=== PATIENT | female | born 1980 | race Caucasian/White ===

== ENCOUNTER → 2016-08-29 | Outpatient (CLI) | payer OTHER | END | disposition home or self-care (01) | LOC: LABWHC1 10:00 | PROVIDERS: ATTEND Internal Medicine Endocrinology, Diabetes & Metabolism | DX: E03.8 Other specified hypothyroidism (principal) | CPT/HCPCS: 36415; 84443 ==

== ENCOUNTER → 2017-02-23 | Outpatient (CLI) | payer OTHER | END | disposition home or self-care (01) | LOC: LABWHC1 09:48 | PROVIDERS: ATTEND Internal Medicine Endocrinology, Diabetes & Metabolism | DX: E03.8 Other specified hypothyroidism (principal) | CPT/HCPCS: 36415; 84443 ==

== ENCOUNTER → 2017-10-19 | Outpatient (CLI) | payer OTHER | END | disposition home or self-care (01) | LOC: LABWHC1 10:55 | PROVIDERS: ATTEND Internal Medicine Endocrinology, Diabetes & Metabolism | DX: E03.8 Other specified hypothyroidism (principal) | CPT/HCPCS: 36415; 84443 ==

== ENCOUNTER → 2018-10-19 | Outpatient (CLI) | payer OTHER ==
[2018-10-19 17:27] LABS: T4, Free (Free Thyroxine) 1.4 ng/dL (0.80-1.80)
== END ==
LOC: LABWHC1 10:17
PROVIDERS: ATTEND Internal Medicine Endocrinology, Diabetes & Metabolism
DX: E04.1 Nontoxic single thyroid nodule (principal)
CPT/HCPCS: 36415; 84439; 84443

== ENCOUNTER → 2018-10-25 | Outpatient (CLI) | payer OTHER ==
--- NOTE | 2018-10-25 13:36 | US ---
EXAMINATION TYPE: US thyroid st tissue head/neck DATE OF EXAM: 10/25/2018 COMPARISON: NONE CLINICAL HISTORY: E04.1 Nontoxic single thyroid nodule. Patient states she has had a thyroid biopsy i n the past GLAND SIZE: Right Lobe: 4.8 x 1.4 x 1.6 cm Overall Parenchyma: homogenous Left Lobe: 4.4 x 0.9 x 1.5 cm Overall Parenchyma: homogeneous Isthmus Thickness: 0.2 cm NODULES RIGHT: # of nodules measured on right: 1 1. 1.1 X 0.7 x 0.7 cm hypoechoic solid nodule at the lower pole with well-defined margins. This no dule is wider than tall and shows intranodular vascularity. Prior size: No previous LEFT: # of nodules measured on left: 0 ISTHMUS: # of nodules measured in the isthmus: 0 Bilateral neck scanned, no evidence of lymphadenopathy. IMPRESSION: Solitary right thyroid nodule meeting criteria for a TI-RADS 4-Moderately Suspicious: FNA if ? 1.5 cm ; Follow if ? 1 cm. Therefore continued follow-up is recommended at this time.
== END | disposition home or self-care (01) ==
LOC: RADUSWWP 09:30
PROVIDERS: ATTEND Internal Medicine Endocrinology, Diabetes & Metabolism
DX: E04.1 Nontoxic single thyroid nodule (principal)
CPT/HCPCS: 76536

== ENCOUNTER → 2018-10-25 | Outpatient (CLI) | payer OTHER ==
--- NOTE | 2018-10-25 11:21 | MM ---
Reason for exam: clinical finding. Baseline mammogram. Indicated problem(s): lump or thickening in the right breast. Physical Findings: Nurse did not find any significant physical abnormalities on exam. MG 3D Diag Mammo W/Cad ESTHER Bilateral CC and MLO view(s) were taken. XCCL view(s) were taken of the right breast. The breast tissue is heterogeneously dense. This may lower the sensitivity of mammography. Finding: There is a typically benign equal density (isodense), circumscribed oval mass in the upper outer quadrant, posterior position of the right breast consistent with probable lymph node. There is no discrete abnormality. These results were verbally communicated with the patient and result sheet given to the patient on 10/25/18. ASSESSMENT: Benign, BI-RAD 2 RECOMMENDATION: Routine screening mammogram of both breasts at age 42. Manage patient on a clinical basis.
--- NOTE | 2018-10-25 11:22 | USB ---
Reason for exam: clinical finding. US Breast Limited RT Right limited breast ultrasound including focal area of concern, retroareolar and axilla demonstrates no cystic or solid lesion seen. BB (palpable abnormality) corresponds to a focal area of dense tissue. No suspicious finding. These results were verbally communicated with the patient and result sheet given to the patient on 10/25/18. ASSESSMENT: Negative, BI-RAD 1 RECOMMENDATION: Routine screening mammogram of both breasts at age 42. (or sooner if clinically indicated)
== END | disposition home or self-care (01) ==
LOC: RADMAMWWP 09:26
PROVIDERS: ATTEND Obstetrics & Gynecology
DX: N63.12 Unspecified lump in the right breast, upper inner quadrant (principal)
CPT/HCPCS: 77062; 77066

== ENCOUNTER → 2019-05-27 | Outpatient (CLI) | payer OTHER | END | disposition home or self-care (01) | LOC: LABWHC1 10:12 | PROVIDERS: ATTEND Internal Medicine Endocrinology, Diabetes & Metabolism | DX: E03.8 Other specified hypothyroidism (principal) | CPT/HCPCS: 36415; 84443 ==

== ENCOUNTER → 2020-08-26 | Outpatient (CLI) | payer OTHER | END | disposition home or self-care (01) | LOC: LABWHC1 11:42 | PROVIDERS: ATTEND Internal Medicine Endocrinology, Diabetes & Metabolism | DX: E03.8 Other specified hypothyroidism (principal) | CPT/HCPCS: 36415; 84443 ==

== ENCOUNTER → 2021-04-22 | Outpatient (CLI) | payer OTHER ==
[2021-04-22 15:12] LABS: Basophils # (A) 0.02 X 10*3/uL (0.00-0.10); Basophils % (A) 0.3 %; Eosinophils # (A) 0.02 X 10*3/uL (0.04-0.35); Eosinophils % (A) 0.3 %; HGB 13.7 g/dL (12.0-15.0); Lymphocytes # (A) 1.74 X 10*3/uL (0.90-5.00); Lymphocytes % (A) 25.8 %; MCH 30.2 pg (27.0-32.0); MCHC 33.4 g/dL (32.0-37.0); MCV 90.3 fL (80.0-97.0); Mean Platelet Volume 10.7 fL (9.5-12.2); Monocytes % (A) 10.4 %; Neutrophils # (A) 4.24 X 10*3/uL (1.80-7.70); Neutrophils % (A) 62.9 %; Platelet Count 333 X 10*3/uL (140-440); RBC 4.54 X 10*6/uL (4.10-5.20); RDW 12.7 % (11.5-14.5); WBC 6.74 X 10*3/uL (4.50-10.00)
[2021-04-22 16:07] LABS: African American GFR (CKD) 129.2 (60.0-200.0); Albumin 4.7 g/dL (3.8-4.9); Albumin/Globulin Ratio 1.75 (1.60-3.17); BUN/Creat Ratio 16.1 Ratio (12.00-20.00); Blood Urea Nitrogen 10.8 mg/dL (9.0-27.0); Calcium 9.5 mg/dL (8.7-10.3); Carbon Dioxide 22.9 mmol/L (20.0-27.5); Globulin 2.7 g/dL (1.6-3.3); Non-African American GFR(CKD) 111.5 (60.0-200.0); T4, Free (Free Thyroxine) 1.56 ng/dL (0.800-1.800); Total Bilirubin 1.3 mg/dL (0.30-1.20); Total Protein 7.5 g/dL (6.2-8.2)
[2021-04-22 16:08] LABS: HDL Cholesterol 60.1 mg/dL (40.00-60.00)
[2021-04-22 16:34] LABS: Chol/HDL Ratio 2.86 Ratio; LDL Cholesterol,Direct Reflex 98.2 mg/dL (0.00-129.00)
[2021-04-22 21:36] LABS: HIV 2 AB Non-Reactive (Non-Reactive); HIV AB P24 Non-Reactive (Non-Reactive); HIV P24 AG Non-Reactive (Non-Reactive)
== END | disposition home or self-care (01) ==
LOC: LABWHC1 09:22
PROVIDERS: ATTEND Internal Medicine Endocrinology, Diabetes & Metabolism
DX: Z11.3 Encounter for screening for infections with a predominantly sexual mode of transmission (principal); Z13.0 Encounter for screening for diseases of the blood and blood-forming organs and certain disorders involving the immune mechanism; Z13.228 Encounter for screening for other metabolic disorders; Z13.220 Encounter for screening for lipoid disorders; E03.9 Hypothyroidism, unspecified; E04.1 Nontoxic single thyroid nodule
CPT/HCPCS: 36415; 80053; 80061; 83721; 84439; 84443; 85025; 86803; 87390

== ENCOUNTER → 2021-04-27 | Outpatient (CLI) | payer OTHER ==
--- NOTE | 2021-04-27 13:09 | US ---
EXAMINATION TYPE: US thyroid st tissue head/neck DATE OF EXAM: 04/27/2021 COMPARISON: 10/25/2018 CLINICAL HISTORY: E03.9 Other specified hypothyroidism. Pervious FNA per patient GLAND SIZE: Right Lobe: 5.3x1.7x1.6 cm Overall Parenchyma: homogenous Left Lobe: 4.6x1.5x1.4 cm Overall Parenchyma: homogeneous Isthmus Thickness: 0.2 cm NODULES RIGHT: # of nodules measured on right: 1 1. 1.3 X 0.8 x 0.7 cm, lower mid, solid or almost completely solid, hypoechoic nodule, which is wid er than tall, with smooth margins, with macrocalcifications. Prior size: 1.1 x 0.7 x 0.7 cm LEFT: # of nodules measured on left: 0 ISTHMUS: # of nodules measured in the isthmus: 0 Bilateral neck scanned, no evidence of lymphadenopathy. Homogeneous normal-sized thyroid with stable in size lower pole 1.3 cm solid nodule accounting for te chnical differences, macrocalcifications are present on current study. IMPRESSION: As above. Follow if ultrasound at 1, 2, 3, and 5 y is advised. 2017 ACR TI-RADS LEVEL: TR-RADS 4 - Moderately Suspicious: Follow if > 1 cm, FNA if > 1.5 cm *Highest TI-RADS level nodule reported
== END | disposition home or self-care (01) ==
LOC: RADUSWWP 12:17
PROVIDERS: ATTEND Internal Medicine Endocrinology, Diabetes & Metabolism
DX: E04.1 Nontoxic single thyroid nodule (principal)
CPT/HCPCS: 76536

== ENCOUNTER → 2022-02-04 | Outpatient (CLI) | payer OTHER ==
[2022-02-04 16:24] LABS: T4, Free (Free Thyroxine) 1.45 ng/dL (0.800-1.800)
== END | disposition home or self-care (01) ==
LOC: LABWHC1 09:17
PROVIDERS: ATTEND Internal Medicine Endocrinology, Diabetes & Metabolism
DX: E04.1 Nontoxic single thyroid nodule (principal)
CPT/HCPCS: 36415; 84439; 84443

== ENCOUNTER → 2022-06-06 | Outpatient (CLI) | payer BC ==
--- NOTE | 2022-06-06 12:58 | US ---
EXAMINATION TYPE: US thyroid st tissue head/neck DATE OF EXAM: 06/06/2022 COMPARISON: Thyroid ultrasound 04/27/2021, 10/25/2018. CLINICAL HISTORY: E03.8 OTHER SPECIFIED HYPOTHYROIDISM. Hypothyroidism GLAND SIZE: Right Lobe: 5.1 x 1.2 x 1.5 cm Overall Parenchyma: homogenous Left Lobe: 5.5 x 1.4 x 1.4 cm Overall Parenchyma: homogeneous Isthmus Thickness: .2 cm NODULES RIGHT: # of nodules measured on right: 1 1. 1.2 X .7 x .8 cm, lower , solid or almost completely solid, hypoechoic nodule, which is wider th an tall, with smooth margins, with echogenic foci. TR-4. Prior size: 1.3 x .7 x .8 cm LEFT: # of nodules measured on left: 0 ISTHMUS: # of nodules measured in the isthmus: 0 Bilateral neck scanned, no evidence of lymphadenopathy. IMPRESSION: Stable TR 4 right thyroid lobe 1.2 cm nodule. No new or enlarging thyroid nodules. Follow-up ultrasou nd in one year is recommended. 2017 ACR TI-RADS LEVEL: TR-RADS 4 - Moderately Suspicious: Follow if > 1 cm, FNA if > 1.5 cm *Highest TI-RADS level nodule reported
== END | disposition home or self-care (01) ==
LOC: RADUSWWP 11:15
PROVIDERS: ATTEND Internal Medicine Endocrinology, Diabetes & Metabolism
DX: E04.1 Nontoxic single thyroid nodule (principal); E03.8 Other specified hypothyroidism
CPT/HCPCS: 76536; 84443

== ENCOUNTER → 2024-06-07 | Outpatient (CLI) | payer BC ==
--- NOTE | 2024-06-07 10:25 | MM ---
Reason for Exam: Screening (asymptomatic). Last mammogram was performed 5 year(s) and 7 month(s) ago. Patient History: Menarche at age 15. First Full-Term at age 28. Patient has history of breast feeding. Last menstrual period: 05/24/2024 Risk Values: Melvi 5 year model risk: 0.7%. NCI Lifetime model risk: 11.0%. Prior Study Comparison: 10/25/2018 Bilateral Diagnostic Mammogram, [facility]. Tissue Density: The breasts are extremely dense, which lowers the sensitivity of mammography. Findings: Analyzed By CAD. There is a 11 mm Focal asymmetry outer aspect middle depth right breast cc view not clearly seen on MLO view . Follow-up advised. Benign-appearing bilateral axillary lymph nodes are seen. Overall Assessment: Incomplete: need additional imaging evaluation, BI-RAD 0 Management: Diagnostic Mammogram of the right breast. Diagnostic Breast Ultrasound of the right breast. Advise diagnostic mammogram and targeted ultrasound outer upper right breast due to background dense tissue. Patient should continue monthly self-breast exams. A clinical breast exam by your physician is recommended on an annual basis. This exam should not preclude additional follow-up of suspicious palpable abnormalities. Note on Melvi scores and lifetime risk: 1. A Melvi score greater than 3% is considered moderate risk. If this is the case, consider specialist referral to assess eligibility for a risk reducing agent. 2. If overall lifetime risk for the development of breast cancer is 20% or higher, the patient may qualify for future screening with alternating mammogram and breast MRI. [facility], , 06/07/2024 10:21 AM. Electronically signed and approved by: Arnulfo Murphy M.D.
--- NOTE | 2024-06-07 10:30 | US ---
EXAMINATION TYPE: US thyroid st tissue head/neck DATE OF EXAM: 06/07/2024 COMPARISON: 06/06/2022 CLINICAL INDICATION: Female, 43 years old with history of E04.1 SINGLE THYROID NODULE; Patient denies any changes from prior TECHNIQUE: Grayscale and color Doppler imaging of the thyroid gland. FINDINGS: GLAND SIZE: Right Lobe: 5.3 x 1.4 x 4.9 cm Overall Parenchyma: homogeneous Left Lobe: 5.1 x 1.4 x 1.8 cm Overall Parenchyma: homogeneous Isthmus Thickness: 0.1 cm NODULES RIGHT: # of nodules measured on right: 1 1. 1.3 X 0.8 x 0.9 cm, lower lateral, Prior size: 1.2 x 0.7 x 0.8 cm TIRADS Score: 7 TIRADS Category 5: Composition: Solid or almost completely solid (2 points). Echogenicity: Hypoechoic (2 points). Shape: Wider than tall (0 points). Margin: Smooth (0 points). Echogenic foci: Punctate echogenic foci (3 points) Recommendation: If >1cm: FNA; If >0.5cm: Follow annually for 5 years LEFT: # of nodules measured on left: 0 ISTHMUS: # of nodules measured in the isthmus: 0 Bilateral neck scanned, no evidence of lymphadenopathy. IMPRESSION: Right thyroid nodule as seen dating back to 2019 if not already performed tissue sampling should be c onsidered given the development of calcifications in the last couple years opacification seen on 2018. [facility], , 06/07/2024 10:28 AM
== END | disposition home or self-care (01) ==
LOC: RADMAMWWP 09:25
PROVIDERS: ATTEND Internal Medicine
DX: Z12.31 Encounter for screening mammogram for malignant neoplasm of breast (principal); E04.1 Nontoxic single thyroid nodule; R92.343 Mammographic extreme density, bilateral breasts
CPT/HCPCS: 76536; 77063; 77067

== ENCOUNTER → 2024-06-07 | Outpatient (CLI) | payer BC | END | disposition home or self-care (01) | LOC: LABWHC1 10:11 | PROVIDERS: ATTEND Internal Medicine Endocrinology, Diabetes & Metabolism | DX: E03.8 Other specified hypothyroidism (principal) | CPT/HCPCS: 36415; 84443 ==

== ENCOUNTER → 2024-06-19 | Outpatient (CLI) | payer BC ==
--- NOTE | 2024-06-19 14:43 | MM ---
Reason for Exam: Additional evaluation requested from abnormal screening. Last screening mammogram was performed less than 1 month ago. Patient History: Menarche at age 15. First Full-Term at age 28. Patient has history of breast feeding. Risk Values: Melvi 5 year model risk: 0.7%. NCI Lifetime model risk: 11.0%. Prior Study Comparison: 10/25/2018 Bilateral Diagnostic Mammogram, [facility]. 10/25/2018 Right Diagnostic Ultrasound, [facility]. 06/07/2024 Bilateral MG 3D screening mammo w/cad, [facility]. Tissue Density: Right: The breasts are heterogeneously dense, which may obscure small masses. Findings: Analyzed By CAD. Asymmetries persists lateral aspect and probably upper aspect on MLO view, approximately 10.5 cm nipple and another at 6.4 cm from the nipple. Overall Assessment: Incomplete: need additional imaging evaluation, BI-RAD 0 Management: Diagnostic Breast Ultrasound of the right breast. Results were given to the patient verbally at the time of exam. Patient should continue monthly self-breast exams. A clinical breast exam by your physician is recommended on an annual basis. This exam should not preclude additional follow-up of suspicious palpable abnormalities. Note on Melvi scores and lifetime risk: 1. A Melvi score greater than 3% is considered moderate risk. If this is the case, consider specialist referral to assess eligibility for a risk reducing agent. 2. If overall lifetime risk for the development of breast cancer is 20% or higher, the patient may qualify for future screening with alternating mammogram and breast MRI. [facility], , 06/19/2024 2:40 PM. Electronically signed and approved by: Juan Carlos Landin DO
--- NOTE | 2024-06-20 10:26 | USB ---
Patient History: Menarche at age 15. First Full-Term at age 28. Patient has history of breast feeding. Risk Values: Melvi 5 year model risk: 0.7%. NCI Lifetime model risk: 11.0%. Technique: Method: Targeted. Doppler: Color. Patient Position: LPO. Prior Study Comparison: 10/25/2018 Bilateral Diagnostic Mammogram, [facility]. 06/07/2024 Bilateral MG 3D screening mammo w/cad, [facility]. Findings: The upper outer quadrant of the right breast, the axilla of the right breast and the retroareolar of the right breast were scanned. Technique utilized:US breast workup limited RT Image; Ultrasound imaging of: All 4 quadrants, the retroareolar region and axilla. Anechoic cyst at 11:00 6 cm from nipple. Unclear if this correlates with finding on mammography. Short-term follow-up mammography in 6 months to ensure stability. Overall Assessment: Probably benign, BI-RAD 3 Management: Diagnostic Mammogram of the left breast in 6 months. A clinical breast exam by your physician is recommended on an annual basis and results should be correlated with mammographic findings. This exam should not preclude additional follow-up of suspicious palpable abnormalities. Results were given to the patient verbally at the time of exam. [facility], , 06/19/2024 3:04 PM. Electronically signed and approved by: Juan Carlos Landin DO
== END | disposition home or self-care (01) ==
LOC: RADMAMWWP 14:17
PROVIDERS: ATTEND Internal Medicine
DX: R92.8 Other abnormal and inconclusive findings on diagnostic imaging of breast (principal); R92.333 Mammographic heterogeneous density, bilateral breasts
CPT/HCPCS: 77061; 77065

== ENCOUNTER → 2024-12-10 | Outpatient (CLI) | payer BC ==
--- NOTE | 2024-12-10 11:41 | MM ---
Reason for Exam: Follow-up at short interval from prior study. Last screening mammogram was performed 6 month(s) ago. Patient History: Menarche at age 15. First Full-Term at age 28. Patient has history of breast feeding. Last menstrual period: 11/26/2024 Risk Values: Melvi 5 year model risk: 0.7%. NCI Lifetime model risk: 11.0%. Prior Study Comparison: 10/25/2018 Bilateral Diagnostic Mammogram, [facility]. 06/07/2024 Bilateral MG 3D screening mammo w/cad, [facility]. 06/19/2024 Right MG 3D work up w/cad RT, [facility]. 06/19/2024 Right US breast workup limited RT, [facility]. Tissue Density: Right: The breasts are heterogeneously dense, which may obscure small masses. Findings: Analyzed By CAD. Stable fibroglandular tissue. No new suspicious masses, calcifications or distortions. Overall Assessment: Benign, BI-RAD 2 Management: Screening Mammogram of both breasts in 6 months. Results were given to the patient verbally at the time of exam. Patient should continue monthly self-breast exams. A clinical breast exam by your physician is recommended on an annual basis. This exam should not preclude additional follow-up of suspicious palpable abnormalities. Note on Melvi scores and lifetime risk: 1. A Melvi score greater than 3% is considered moderate risk. If this is the case, consider specialist referral to assess eligibility for a risk reducing agent. 2. If overall lifetime risk for the development of breast cancer is 20% or higher, the patient may qualify for future screening with alternating mammogram and breast MRI. [facility], , 12/10/2024 11:38 AM. Electronically signed and approved by: Juan Carlos Landin DO
== END | disposition home or self-care (01) ==
LOC: RADMAMWWP 10:46
PROVIDERS: ATTEND Internal Medicine
DX: R92.8 Other abnormal and inconclusive findings on diagnostic imaging of breast (principal); R92.331 Mammographic heterogeneous density, right breast
CPT/HCPCS: 77061; 77065